=== PATIENT | male | born 1970 | race Caucasian/White ===

== ENCOUNTER → 2017-06-12 | Outpatient (CLI) | payer BC | END | disposition home or self-care (01) | LOC: WOUND 12:52 | PROVIDERS: ATTEND Nurse Practitioner Family | DX: T87.89 Other complications of amputation stump (principal); E11.622 Type 2 diabetes mellitus with other skin ulcer; L98.491 Non-pressure chronic ulcer of skin of other sites limited to breakdown of skin; L89.893 Pressure ulcer of other site, stage 3; E13.65 Other specified diabetes mellitus with hyperglycemia; Y83.5 Amputation of limb(s) as the cause of abnormal reaction of the patient, or of later complication, without mention of misadventure at the time of the procedure | CPT/HCPCS: 99205 ==

== ENCOUNTER 2017-07-11 11:48 | Inpatient (IN) | payer BC ==
[~2017-07-11] VITALS: Ht 188 cm; Wt 144.5 kg
[2017-07-11] MEDS ORDERED: SODIUM CHLORIDE 0.9% 1,000 ML IV ONE (12:19)
[2017-07-11] MEDS ORDERED: HYDROmorphone 1 MG/ML, 1ML IVPush PRN (12:30)
[2017-07-11] MEDS ORDERED: PHARMACOKINETIC CONSULTATION MC ONE (12:30)
[2017-07-11] MEDS ORDERED: VANCOMYCIN PER PHARMACY MC ONE (12:30)
[2017-07-11] MEDS ORDERED: SODIUM CHLORIDE FLUSH 10ML SYR IVF ONE (12:30)
[2017-07-11] MEDS ORDERED: AMPICILLIN/SULBACTAM 3 GM in SODIUM CHLORIDE 0.9% 100 ML IVPB ONE (12:30)
[2017-07-11] MEDS ORDERED: ONDANSETRON 2MG/ML, 2ML IVPush ONE (12:30)
[2017-07-11] MEDS ORDERED: ONDANSETRON 2MG/ML, 2ML ONE (12:37)
[2017-07-11] MEDS ORDERED: HYDROmorphone 1 MG/ML, 1ML ONE ×2 (12:37→15:16)
[2017-07-11 12:51] LABS: BLOOD UREA NITROGEN 18 mg/dL (7-18)
[2017-07-11 12:58] LABS: HEMATOCRIT 45.5 % (39.2-51.8); HEMOGLOBIN 15.1 g/dL (13.7-18.0); WHITE BLOOD COUNT 16.4 x10^3/uL (3.4-10)
[2017-07-11] MEDS ORDERED: VANCOMYCIN 2,300 MG in SODIUM CHLORIDE 0.9% 500 ML IV ONE (13:00)
[2017-07-11] MEDS ORDERED: hydrALAzine 20 MG/ML, 1ML IVPush PRN (15:30)
[2017-07-11] MEDS ORDERED: ONDANSETRON 2MG/ML, 2ML IVPush PRN (15:30)
[2017-07-11] MEDS ORDERED: BISACODYL 10 MG SUPP PR PRN (15:30)
[2017-07-11] MEDS ORDERED: ACETAMINOPHEN 325 MG TABLET PO PRN (15:30)
[2017-07-11] MEDS ORDERED: POLYETHYLENE GLYCOL 17 GM PACKET PO PRN (15:30)
[2017-07-11] MEDS ORDERED: PIPERACILLIN/TAZO/PMX 3.375GM 50 ML IV SCH (15:30)
[2017-07-11] MEDS ORDERED: VANCOMYCIN PER PHARMACY MC PRN (15:30)
[2017-07-11] MEDS ORDERED: ENALAPRILAT 1.25 MG/ML, 2ML IVPush PRN (15:30)
[2017-07-11] MEDS: INSULIN ASPART 100 UNITS/ML, PEN SQ-INSULIN SCH ×2 (16:00→20:33)
[2017-07-11 16:45] VITALS: BP 147/81
[2017-07-11] MEDS: OXYcodone IR 5MG TABLET PO PRN ×2 (16:59→22:44)
[2017-07-11] MEDS: SODIUM CHLORIDE 0.9% 1,000 ML IV SCH ×2 (17:01→22:54)
[2017-07-11 19:14] VITALS: BP 121/75
[2017-07-12] VITALS (10 sets, daily range): BP systolic 106–142; BP diastolic 60–84
[2017-07-12] MEDS: morphine SULFATE 10 MG/ML, 1ML IVPush PRN ×3 (00:19→22:40)
[2017-07-12 05:26] LABS: HEMOGLOBIN 13.1 g/dL (13.7-18.0); WHITE BLOOD COUNT 11.2 x10^3/uL (3.4-10)
[2017-07-12 05:36] LABS: BLOOD UREA NITROGEN 12 mg/dL (7-18)
[2017-07-12 05:39] LABS: ASPARTATE AMINO TRANSFERASE 12 U/L (15-37)
[2017-07-12] MEDS: SODIUM CHLORIDE 0.9% 1,000 ML IV SCH (06:12)
[2017-07-12] MEDS: INSULIN ASPART 100 UNITS/ML, PEN SQ-INSULIN SCH ×4 (07:00→21:00)
[2017-07-12] MEDS: OXYcodone IR 5MG TABLET PO PRN ×2 (07:52→23:51)
[2017-07-12] MEDS: SENNA/DOCUSATE TABLET PO SCH (07:52)
[2017-07-12] MEDS ORDERED: LIDOCAINE/PF 1%, 30ML ONE (16:41)
[2017-07-12] MEDS ORDERED: BUPIVACAINE/PF 0.5% ONE (16:41)
[2017-07-12] MEDS ORDERED: MEROPENEM 500 MG in SODIUM CHLORIDE 0.9% 100 ML IV SCH (17:00)
[2017-07-12] MEDS ORDERED: VANCOMYCIN PMX 1GM/200ML 200 ML IV ONE (17:00)
[2017-07-12] MEDS ORDERED: VANCOMYCIN PER PHARMACY MC PRN (17:00)
[2017-07-12] MEDS ORDERED: ROCURONIUM 10 MG/ML ONE ×2 (17:17→17:19)
[2017-07-12] MEDS ORDERED: SUCCINYLCHOLINE 20 MG/ML, 10ML ONE ×2 (17:17→17:19)
[2017-07-12] MEDS ORDERED: PROPOFOL 10 MG/ML, 20ML ONE ×2 (17:17)
[2017-07-12] MEDS ORDERED: MIDAZOLAM 1 MG/ML, 2ML ONE (17:18)
[2017-07-12] MEDS ORDERED: FENTANYL PF 100 MCG/2ML ONE ×2 (17:47→18:52)
[2017-07-12] MEDS ORDERED: ONDANSETRON 2MG/ML, 2ML ONE (17:47)
[2017-07-12] MEDS ORDERED: EPHEDRINE 50 MG/ML, 1ML IVPush PRN (18:00)
[2017-07-12] MEDS ORDERED: OXYcodone 5 MG/5 ML ORAL.SOL UDC PO PRN (18:00)
[2017-07-12] MEDS ORDERED: ONDANSETRON 2MG/ML, 2ML IVPush PRN (18:00)
[2017-07-12] MEDS ORDERED: ALBUTEROL SULFATE 2.5 MG/3 ML NPPB PRN (18:00)
[2017-07-12] MEDS ORDERED: PROMETHAZINE 25 MG/ML, 1ML IV PRN (18:00)
[2017-07-12] MEDS ORDERED: FENTANYL PF 100 MCG/2ML IV PRN (18:00)
[2017-07-12] MEDS ORDERED: hydrALAzine 20 MG/ML, 1ML IV PRN (18:00)
[2017-07-12] MEDS ORDERED: METOCLOPRAMIDE 5 MG/ML, 2ML IV PRN (18:00)
[2017-07-12] MEDS ORDERED: ACETAMINOPHEN 325 MG TABLET PO PRN (18:00)
[2017-07-12] MEDS ORDERED: HYDROcodone/APAP 7.5-325MG/15ML UDC PO PRN (18:00)
[2017-07-12] MEDS ORDERED: LABETALOL 5MG/ML, 20ML IV PRN (18:00)
[2017-07-12] MEDS ORDERED: POTASSIUM CHLORIDE 20 MEQ TAB.ER.PRT PO ONE (18:00)
[2017-07-12] MEDS ORDERED: MEPERIDINE/PF 25MG/0.5ML IVPush PRN (18:00)
[2017-07-12] MEDS ORDERED: LORazepam 2 MG/ML, 1ML IVPush PRN (18:00)
[2017-07-12] MEDS ORDERED: METOPROLOL 1 MG/ML, 5ML IV PRN (18:00)
[2017-07-12] MEDS ORDERED: KETOROLAC 30 MG/1 ML IV PRN (18:00)
[2017-07-12] MEDS: HYDROmorphone 1 MG/ML, 1ML IV PRN ×5 (18:45→20:04)
[2017-07-12] MEDS ORDERED: OXYcodone 5 MG/5 ML ORAL.SOL UDC ONE (18:52)
[2017-07-12] MEDS ORDERED: HYDROmorphone 2 MG/ML, 1ML ONE (18:52)
[2017-07-12] MEDS ORDERED: MEPERIDINE/PF 25MG/0.5ML ONE (19:34)
[2017-07-12] MEDS ORDERED: HYDROmorphone 1 MG/ML, 1ML ONE (20:01)
[2017-07-12] MEDS: MEROPENEM 500 MG in SODIUM CHLORIDE 0.9% 50 ML IV SCH (20:48)
[2017-07-13] VITALS: BP 142/66
[2017-07-13 01:04] VITALS: BP 142/70
[2017-07-13] MEDS ORDERED: PHARMACOKINETIC MONITORING MC PRN (03:00)
[2017-07-13] MEDS ORDERED: VANCOMYCIN 2,000 MG in SODIUM CHLORIDE 0.9% 500 ML IV SCH (03:00)
[2017-07-13] MEDS: MEROPENEM 500 MG in SODIUM CHLORIDE 0.9% 50 ML IV SCH ×3 (05:19→20:23)
[2017-07-13 05:26] VITALS: BP 121/73
[2017-07-13] MEDS: morphine SULFATE 10 MG/ML, 1ML IVPush PRN ×3 (06:44→20:45)
[2017-07-13] MEDS: INSULIN ASPART 100 UNITS/ML, PEN SQ-INSULIN SCH ×4 (07:00→20:47)
[2017-07-13 07:25] VITALS: BP 110/57
[2017-07-13] MEDS: SENNA/DOCUSATE TABLET PO SCH (08:29)
[2017-07-13] MEDS: OXYcodone IR 5MG TABLET PO PRN ×2 (11:50→15:59)
[2017-07-13 13:50] VITALS: BP 103/65
[2017-07-13] MEDS: VANCOMYCIN 2,000 MG in SODIUM CHLORIDE 0.9% 500 ML IV SCH (17:15)
[2017-07-13 19:16] VITALS: BP 125/66
[2017-07-14] MEDS: MEROPENEM 500 MG in SODIUM CHLORIDE 0.9% 50 ML IV SCH ×3 (04:29→20:15)
[2017-07-14] MEDS: morphine SULFATE 10 MG/ML, 1ML IVPush PRN (05:20)
[2017-07-14] MEDS: VANCOMYCIN 2,000 MG in SODIUM CHLORIDE 0.9% 500 ML IV SCH ×2 (05:38→17:59)
[2017-07-14 05:55] VITALS: BP 123/66
[2017-07-14] MEDS: INSULIN ASPART 100 UNITS/ML, PEN SQ-INSULIN SCH ×4 (07:00→21:39)
[2017-07-14] MEDS: SENNA/DOCUSATE TABLET PO SCH (07:55)
[2017-07-14 08:49] VITALS: BP 127/68
[2017-07-14] MEDS: NYSTATIN CRM 15GM TP SCH ×3 (11:30→21:00)
[2017-07-14] MEDS: OXYcodone IR 5MG TABLET PO PRN ×2 (14:03→17:59)
[2017-07-14 16:14] VITALS: BP 132/74
[2017-07-14] MEDS ORDERED: ACETAMINOPHEN 325 MG TABLET PO PRN (19:00)
[2017-07-14] MEDS ORDERED: BISACODYL 10 MG SUPP PR PRN (19:00)
[2017-07-14] MEDS ORDERED: ENALAPRILAT 1.25 MG/ML, 2ML IVPush PRN (19:00)
[2017-07-14] MEDS ORDERED: ONDANSETRON 2MG/ML, 2ML IVPush PRN (19:00)
[2017-07-14] MEDS ORDERED: POLYETHYLENE GLYCOL 17 GM PACKET PO PRN (19:00)
[2017-07-14] MEDS ORDERED: hydrALAzine 20 MG/ML, 1ML IVPush PRN (19:00)
[2017-07-15 03:01] VITALS: BP 128/72
[2017-07-15] MEDS: OXYcodone IR 5MG TABLET PO PRN ×4 (03:13→21:03)
[2017-07-15] MEDS: MEROPENEM 500 MG in SODIUM CHLORIDE 0.9% 50 ML IV SCH ×2 (04:20→08:26)
[2017-07-15] MEDS: VANCOMYCIN 2,000 MG in SODIUM CHLORIDE 0.9% 500 ML IV SCH (05:07)
[2017-07-15] MEDS: INSULIN ASPART 100 UNITS/ML, PEN SQ-INSULIN SCH ×4 (07:00→21:00)
[2017-07-15] MEDS: NYSTATIN CRM 15GM TP SCH ×3 (08:24→21:03)
[2017-07-15] MEDS: SENNA/DOCUSATE TABLET PO SCH (08:27)
[2017-07-15] MEDS ORDERED: CEFTRIAXONE PMX 2GM/50ML 50 ML IV SCH (10:00)
[2017-07-15] MEDS: DAPTOMYCIN 900 MG in SODIUM CHLORIDE 0.9% 100 ML IVPB SCH (13:39)
[2017-07-15 13:41] VITALS: BP 133/81
[2017-07-15] MEDS: ENOXAPARIN 40 MG/0.4 ML SQ SCH (17:27)
[2017-07-15 21:00] VITALS: BP 126/79
[2017-07-16] MEDS: morphine SULFATE 10 MG/ML, 1ML IVPush PRN ×2 (02:57→09:59)
[2017-07-16 05:45] LABS: HEMATOCRIT 36.2 % (39.2-51.8); WHITE BLOOD COUNT 26.8 x10^3/uL (3.4-10)
[2017-07-16 05:56] LABS: BLOOD UREA NITROGEN 10 mg/dL (7-18)
[2017-07-16] MEDS: OXYcodone IR 5MG TABLET PO PRN ×3 (05:56→19:23)
[2017-07-16 06:06] LABS: ASPARTATE AMINO TRANSFERASE 11 U/L (15-37)
[2017-07-16 06:24] LABS: C-REACTIVE PROTEIN, QUANT > 19.00 mg/dL (0.02-0.49)
[2017-07-16 06:41] LABS: DIFF TOTAL CELLS COUNTED 100 CELL DIFF
[2017-07-16 06:43] LABS: VERIFY COUNTS? YES
[2017-07-16 06:44] LABS: POLYCHROMASIA 1+
[2017-07-16] MEDS: INSULIN ASPART 100 UNITS/ML, PEN SQ-INSULIN SCH ×4 (07:00→20:27)
[2017-07-16 08:00] VITALS: BP 136/74
[2017-07-16] MEDS: SENNA/DOCUSATE TABLET PO SCH (09:00)
[2017-07-16] MEDS ORDERED: CEFTRIAXONE 2 GM in DEXTROSE 5% 50 ML IV SCH ×2 (10:00→12:00)
[2017-07-16] MEDS: NYSTATIN CRM 15GM TP SCH ×3 (10:00→19:11)
[2017-07-16] MEDS: CEFTRIAXONE 2 GM in DEXTROSE 5% 50 ML IV SCH (12:37)
[2017-07-16 13:25] VITALS: BP 114/53
[2017-07-16] MEDS: DAPTOMYCIN 900 MG in SODIUM CHLORIDE 0.9% 100 ML IVPB SCH (14:10)
[2017-07-16] MEDS: ENOXAPARIN 40 MG/0.4 ML SQ SCH (19:11)
[2017-07-16 20:23] VITALS: BP 112/68
[2017-07-17] MEDS: morphine SULFATE 10 MG/ML, 1ML IVPush PRN (00:42)
[2017-07-17 01:22] VITALS: BP 129/65
[2017-07-17 04:37] LABS: HEMATOCRIT 35.7 % (39.2-51.8); HEMOGLOBIN 11.9 g/dL (13.7-18.0); WHITE BLOOD COUNT 18.6 x10^3/uL (3.4-10)
[2017-07-17] MEDS: INSULIN ASPART 100 UNITS/ML, PEN SQ-INSULIN SCH ×4 (07:00→21:00)
[2017-07-17 07:27] VITALS: BP 119/74
[2017-07-17] MEDS: SENNA/DOCUSATE TABLET PO SCH (09:00)
[2017-07-17] MEDS: NYSTATIN CRM 15GM TP SCH ×3 (11:30→20:28)
[2017-07-17] MEDS: OXYcodone IR 5MG TABLET PO PRN ×3 (11:30→20:27)
[2017-07-17] MEDS: CEFTRIAXONE 2 GM in DEXTROSE 5% 50 ML IV SCH (13:57)
[2017-07-17 14:37] VITALS: BP 115/62
[2017-07-17] MEDS: DAPTOMYCIN 900 MG in SODIUM CHLORIDE 0.9% 100 ML IVPB SCH (16:15)
[2017-07-17 20:14] VITALS: BP 120/80
[2017-07-17] MEDS: ENOXAPARIN 40 MG/0.4 ML SQ SCH (20:27)
[2017-07-18 04:41] VITALS: BP 131/86
[2017-07-18] MEDS: OXYcodone IR 5MG TABLET PO PRN ×2 (04:47→13:13)
[2017-07-18 05:06] LABS: HEMATOCRIT 34.8 % (39.2-51.8); HEMOGLOBIN 11.6 g/dL (13.7-18.0)
[2017-07-18] MEDS: INSULIN ASPART 100 UNITS/ML, PEN SQ-INSULIN SCH ×3 (07:00→16:00)
[2017-07-18 08:13] VITALS: BP 113/70
[2017-07-18] MEDS: SENNA/DOCUSATE TABLET PO SCH (08:36)
[2017-07-18] MEDS: NYSTATIN CRM 15GM TP SCH ×2 (11:26→16:00)
[2017-07-18 12:40] VITALS: BP 118/71
[2017-07-18] MEDS: CEFTRIAXONE 2 GM in DEXTROSE 5% 50 ML IV SCH (13:13)
[2017-07-18] MEDS: DAPTOMYCIN 900 MG in SODIUM CHLORIDE 0.9% 100 ML IVPB SCH (15:13)
[2017-07-18] MEDS ORDERED: CEFT2FRO2 IV (15:23)
[2017-07-18] MEDS ORDERED: DAPT500V3 IV (15:23)
== END 2017-07-18 18:25 | disposition home or self-care (01) | DRG 854 ==
LOC: ED 12:57 → EDIP 13:29 → 3NE 13:57
PROVIDERS: ADMIT Hospitalist; ATTEND Hospitalist
PROC: 02HV33Z Insertion of Infusion Device into Superior Vena Cava, Percutaneous Approach (ICD-10-PCS; 2017-07-12)
PROC: B5181ZA Fluoroscopy of Superior Vena Cava using Low Osmolar Contrast, Guidance (ICD-10-PCS; 2017-07-12)
PROC: 0Y6H0Z3 Detachment at Right Lower Leg, Low, Open Approach (ICD-10-PCS; principal; 2017-07-12 17:00)
DX: A41.9 Sepsis, unspecified organism (principal); E44.0 Moderate protein-calorie malnutrition; E11.622 Type 2 diabetes mellitus with other skin ulcer; M86.161 Other acute osteomyelitis, right tibia and fibula; E11.65 Type 2 diabetes mellitus with hyperglycemia; F11.20 Opioid dependence, uncomplicated; T87.43 Infection of amputation stump, right lower extremity; L03.115 Cellulitis of right lower limb; L97.919 Non-pressure chronic ulcer of unspecified part of right lower leg with unspecified severity; T87.89 Other complications of amputation stump; E11.69 Type 2 diabetes mellitus with other specified complication; B37.2 Candidiasis of skin and nail; G89.29 Other chronic pain; Z79.84 Long term (current) use of oral hypoglycemic drugs; Z86.14 Personal history of Methicillin resistant Staphylococcus aureus infection; Z89.512 Acquired absence of left leg below knee; Y83.5 Amputation of limb(s) as the cause of abnormal reaction of the patient, or of later complication, without mention of misadventure at the time of the procedure
CPT/HCPCS: 36415; 36569; 76937; 77001; 80048; 80053; 80061; 80202; 81003; 82040; 82550; 82962; 83036; 83735; 84439; 84443; 85025; 85651; 86140; 87015; 87040; 87070; 87075; 87077; 87102; 87116; 87147; 87176; 87181; 87186; 87205; 87206; 96365; 96375; J0295; J0696; J0878; J1170; J1650; J1815; J2175; J2185; J2250; J2405; J2704; J3010; J3370; J3490; C1751; J0330; J2270; J7030; J7040

== ENCOUNTER → 2017-08-29 | Outpatient (CLI) | payer BC ==
[~2017-08-29] MED LIST: CEFT2FRO2 IV; DAPT500V3 IV
== END | disposition home or self-care (01) ==
LOC: WOUND 15:10
PROVIDERS: ATTEND Internal Medicine
DX: E11.9 Type 2 diabetes mellitus without complications (principal); F11.20 Opioid dependence, uncomplicated; G89.29 Other chronic pain; E11.69 Type 2 diabetes mellitus with other specified complication; M86.161 Other acute osteomyelitis, right tibia and fibula; Z89.512 Acquired absence of left leg below knee; Z89.511 Acquired absence of right leg below knee
CPT/HCPCS: 99213